=== PATIENT | male | born 1995 | race Caucasian/White ===

== ENCOUNTER 2018-03-31 19:12 | Emergency (ER) | payer BC, MEDICARE, MEDICAID, SELFPAY ==
[2018-03-31 19:17] VITALS: BP 116/71; PULSE 77; RESP 20; TEMP 37; O2SAT 97
--- NOTE | 2018-03-31 19:27 | DI.REPORT_ITS ---
SYMPTOM/DIAGNOSIS: VOLAR PAIN AND SWELLING AFTER QUESTION FOREIGN BODY LEFT INDEX FINGER: 03/31 Three views were obtained. No bony abnormality seen. No foreign body identified.
--- NOTE | 2018-03-31 19:28 | ED.GENADUL ---
Disposition Clinical Impression: Cellulitis of left index finger Disposition: HOME Condition: Good Instructions: Cellulitis (ED) Additional Instructions: Continue to use warm soaks with Epsom salts, elevation of the hand to reduce pain and swelling. Take antibiotics as prescribed. Return to the emergency department for worsening discomfort or any other acute concerns Prescriptions: Cephalexin [Keflex] 500 mg PO TID #20 cap Medical Decision Making - Radiology Data Radiology results: image reviewed - Medical Decision Making 22-year-old male with foreign body to finger earlier in the summer, now states that he recently instrumented the area with removal of core. Now has evidence of mild developing cellulitis. He is afebrile and otherwise well-appearing. Referred for x-ray to rule out underlying bony injury or persistent foreign body. No bony abnormality or foreign body present. Will place patient on Keflex. He understands home care as well as return precautions which I discussed with he and his patient case manager prior to discharge. History of Present Illness - General Chief complaint: Cellulitis Stated complaint: FINGER INFECTION Time Seen by Provider: 03/31/18 19:19 Source: patient, RN notes reviewed Mode of arrival: ambulatory Limitations: no limitations - History of Present Illness Initial comments: Left index finger swelling and pain: 22-year-old male states that in January he had a staple from a staple gun enter the volar aspect of his left index finger. He removed it. He states that approximately 1 week ago he had recurrent swelling and pain and took a knife and removed core from his finger. Unclear if this was solid or soft tissue. Today he presents with 2-3 days of dull, achy, mild throbbing and swelling of his left index finger. There is some minimal associated erythema. Has not had a fever. Has not had recurrent discharge. Denies manipulating the area again. He presents with patient case manager for evaluation. She had no numbness, tingling, no significant pain with movement. - Related Data Citalopram Hydrobromide [Celexa] 20 mg PO BID 09/12/17 [place] Carbonate 900 mg PO BID 09/12/17 Melatonin 3 mg PO HS 09/12/17 Methylphenidate [Ritalin] 20 mg PO DAILY 09/12/17 OXcarbazepine [Trileptal] 150 mg PO BID 09/12/17 Risperidone [Risperdal] 0.5 mg PO QID 09/12/17 Tretinoin/Emol Cmb9/Skin Cln1 [Tretin-X 0.025% Cream Comb Pck] 09/12/17 Ziprasidone [Geodon] 20 mg PO TID 09/12/17 Ziprasidone [Geodon] 40 mg PO BID 09/12/17 Cephalexin [Keflex] 500 mg PO TID #20 cap 03/31/18 Allergies Allergy/AdvReac Type Severity Reaction Status Date / Time aripiprazole [From Abilify] AdvReac Agitation Unverified 03/31/18 19:21 divalproex sodium AdvReac Agitation Unverified 03/31/18 19:21 [From Depakote] methylphenidate AdvReac Agitation Unverified 03/31/18 19:21 risperidone [From Risperdal] AdvReac Other (See Unverified 03/31/18 19:21 Comment) ziprasidone AdvReac Other (See Unverified 03/31/18 19:21 Comment) Review of Systems Other: 4 systems reviewed, otherwise negative General Exam - General Limitations: no limitations General appearance: alert, in no apparent distress - Head Head exam: Present: atraumatic, normocephalic - Respiratory Respiratory exam: Absent: respiratory distress - Extremities Exam Extremities exam: Present: tenderness, normal capillary refill, other (Left index finger with mild swelling. Able to passively and actively flex and extend without discomfort. There is no significant warmth. No pointing fluctuance.) - Neurological Exam Neurological exam: Present: alert, oriented X3 - Psychiatric Psychiatric exam: Present: normal affect, normal mood Course Vital Signs - 24 hr 03/31/18 19:17 Temperature 37 C Pulse 77 Respiratory 20 Rate Blood Pressure 116/71 Pulse Oximetry 97
[2018-03-31] MEDS: Cephalexin 500 MG CAP PO (20:03)
[2018-03-31 20:04] VITALS: BP 116/71; PULSE 77; RESP 20; TEMP 37; O2SAT 97
--- NOTE | 2018-03-31 20:25 | DI.VRAD_ITS ---
EXAM: XR Left Finger(s), 2 or More Views CLINICAL HISTORY: 22 years old, male; Pain; Finger(s); Left; Patient HX: Volar pain and swelling after question foreign body. TECHNIQUE: Frontal, lateral and oblique views of finger(s) of the left hand. COMPARISON: No relevant prior studies available. FINDINGS: Bones/joints: No acute fracture. No dislocation. Soft tissues: Soft tissue edema seen about the first digit. No radiopaque foreign body. IMPRESSION: No acute osseous findings. Dictated and Authenticated by: Salinas Hawkins MD. Ordering:ROMEL SALCEDO MD
== END 2018-03-31 20:14 | disposition home or self-care (01) ==
PROVIDERS: Emergency Provider Emergency Medicine; PCP Family Medicine
DX: S61.241A Puncture wound with foreign body of left index finger without damage to nail, initial encounter (principal); L03.012 Cellulitis of left finger; W45.8XXA Other foreign body or object entering through skin, initial encounter; W26.0XXA Contact with knife, initial encounter
CPT/HCPCS: 99283; 73140